=== PATIENT | female | born 1955 | race Caucasian/White ===

== ENCOUNTER 2019-08-07 06:52 | Outpatient (CLI) | payer BC, OTHER ==
[2019-08-08 11:06] LABS: SARS-CoV-2 MS2 Positive; SARS-CoV-2 N Gene Negative; SARS-CoV-2 S Gene Negative; SARS-CoV-2 orf1ab Negative
== END 2019-08-07 06:53 | disposition home or self-care (01) ==
LOC: LABBT 06:52
PROVIDERS: ATTEND Internal Medicine Gastroenterology
DX: Z01.812 Encounter for preprocedural laboratory examination (principal); Z11.59 Encounter for screening for other viral diseases; D64.9 Anemia, unspecified
CPT/HCPCS: 87635; U0003

== ENCOUNTER 2019-08-12 06:26 | Day surgery (SDC) | payer BC ==
[2019-08-07 13:49] VITALS: BMI 23.0
--- NOTE | 2019-08-12 | HP ---
HISTORY OF PRESENT ILLNESS: This is a 64-year-old female comes for an EGD and colonoscopy. The patient has history of anemia recently. The patient had no history of hematochezia or melena. Anemia is iron deficiency. The patient had. n/o history of any abdominal pain, nausea, or vomiting. Her bowel movements are regular. No history of dysphagia, odynophagia, or painful swallowing. The patient had no specific GI symptoms of anemia. She comes for an EGD and colonoscopy for evaluation of anemia, which is an iron deficiency. ALLERGIES: PENICILLIN. SOCIAL HISTORY: The patient does not smoke or drink alcohol. MEDICAL ILLNESSES: 1. Hypertension. 2. Allergic rhinitis. 3. Anxiety. 4. Rheumatoid arthritis. 5. History of systemic lupus erythematosus. 6. Chronic kidney disease. 7. Chronic acid reflux. 8. History of ovarian cyst removal in the past. PHYSICAL EXAMINATION: VITAL SIGNS: Weight is 124 pounds, pulse is 76, and blood pressure 160/90. HEENT: Conjunctivae clear. CARDIOVASCULAR: First and second heart sounds are normal. LUNGS: Clear to auscultation. ABDOMEN: Soft. No organomegaly. No tenderness. No masses. EXTREMITIES: Reveal no edema. ADMITTING DIAGNOSES: 1. Chronic acid reflux. 2. Iron-deficiency anemia. PLAN: EGD and colonoscopy. Job ID: [id number] [facility]
[2019-08-12] MEDS ORDERED: Midazolam HCl 2 mg/2 ml Vial ONE (08:15)
[2019-08-12] MEDS ORDERED: Lidocaine 1% PF 5 ML VIAL ONE (10:16)
[2019-08-12] MEDS ORDERED: PROPOFOL 200 MG/20 ML VIAL ONE (10:16)
--- NOTE | 2019-08-12 17:08 | OP ---
DATE OF PROCEDURE: 08/12/2019 PROCEDURE PERFORMED: Esophagogastroduodenoscopy with biopsy. PREOPERATIVE DIAGNOSES: A 64-year-old female with chronic acid reflux and anemia, undergoing esophagogastroduodenoscopy. POSTOPERATIVE DIAGNOSES: 1. Normal esophagus. 2. Gastritis of the gastric body. 3. Normal duodenum. DESCRIPTION OF PROCEDURE: The patient was placed on her left lateral position and was given sedation by Anesthesia Department. A Pentax video gastroscope under direct vision was passed down the oropharynx past the GE junction into the stomach and subsequently into the descending duodenum. The vocal cords appeared healthy. Although the patient had a history of chronic acid reflux, on endoscopy, the mucosa appeared normal. No esophagitis or any erosions. In the GE junction, no pathology. Retroflexion failed to show any pathology in fundus or cardia. The gastric body showed linear erythematous streaks indicative of gastritis. In the gastric antrum, no lesion seen. In the duodenal bulb and descending duodenum, no pathology. Random biopsies were obtained from the descending duodenum. The stomach was decompressed and the scope was removed. DISCHARGE PLANNING: A 64-year-old female came for EGD and colonoscopy. The EGD showed gastritis of the gastric body. The colonoscopy showed scattered diverticula. The patient did well postprocedure and is being discharged. DISCHARGE INSTRUCTIONS: 1. The patient is advised to call me if she develops abdominal pain or hematochezia. 2. Continue medications as before. 3. Come back to clinic in 2 weeks. Job ID: [id number]
--- NOTE | 2019-08-12 17:19 | OP ---
DATE OF PROCEDURE: 08/12/2019 PROCEDURE PERFORMED: Colonoscopy. PREOPERATIVE DIAGNOSIS: A 64-year-old female with microcytic anemia, undergoing colonoscopy. POSTOPERATIVE DIAGNOSES: Sigmoid diverticular disease. Otherwise normal ileocolonoscopy. DESCRIPTION OF PROCEDURE: The patient was placed on left lateral position and was given sedation by Anesthesia Department. A rectal exam was done before scope was advanced into the rectum. No lesions felt on rectal exam. A Pentax video colonoscope was introduced into the rectum and advanced all the way to the cecum. The prep was good. The mucosa appears normal throughout the colon with normal vascular pattern. In the appendiceal orifice, ileocecal valve, cecum, no lesion seen. The scope advanced into the terminal ileum. The ileal mucosa appeared normal. Withdrawal of scope from the Ileum in to the ascending colon hepatic flexure no lesion seen. In the transverse colon, splenic flexure, descending colon, no lesion. The sigmoid colon shows scattered diverticula. Retroflexion of scope in the rectum show no pathology. [facility] ID: [id number] [facility]
== END 2019-08-12 10:16 | disposition home or self-care (01) ==
LOC: SDC 06:26
PROVIDERS: ATTEND Internal Medicine Gastroenterology
PROC: 0DJD8ZZ Inspection of Lower Intestinal Tract, Via Natural or Artificial Opening Endoscopic (ICD-10-PCS; principal; 2019-08-12)
PROC: 0DB98ZX Excision of Duodenum, Via Natural or Artificial Opening Endoscopic, Diagnostic (ICD-10-PCS; principal; 2019-08-12)
PROC: 0DB88ZX Excision of Small Intestine, Via Natural or Artificial Opening Endoscopic, Diagnostic (ICD-10-PCS; principal; 2019-08-12)
DX: D50.9 Iron deficiency anemia, unspecified (principal); K57.30 Diverticulosis of large intestine without perforation or abscess without bleeding; K21.9 Gastro-esophageal reflux disease without esophagitis; K29.70 Gastritis, unspecified, without bleeding; I12.9 Hypertensive chronic kidney disease with stage 1 through stage 4 chronic kidney disease, or unspecified chronic kidney disease; N18.9 Chronic kidney disease, unspecified; M06.9 Rheumatoid arthritis, unspecified; F41.9 Anxiety disorder, unspecified; F32.9 Major depressive disorder, single episode, unspecified; Z79.899 Other long term (current) drug therapy; Z88.0 Allergy status to penicillin
CPT/HCPCS: 88305; J2001; J2250; J2704

== ENCOUNTER 2023-01-12 09:53 | Outpatient (CLI) | payer MEDICARE | END 2023-01-12 09:54 | disposition home or self-care (01) | LOC: BICMAMMO 09:53 | PROVIDERS: ATTEND Family Medicine | DX: Z12.31 Encounter for screening mammogram for malignant neoplasm of breast (principal) | CPT/HCPCS: 77063; 77067 ==